=== PATIENT | female | born 1955 | race Caucasian/White ===

== ENCOUNTER → 2023-02-19 10:54 | Outpatient (BNVA) | payer MEDICARE, SELFPAY | PROVIDERS: PCP Family Medicine; Visit Provider Family Medicine | DX: E03.9 Hypothyroidism, unspecified (principal); E78.5 Hyperlipidemia, unspecified; I10 Essential (primary) hypertension | CPT/HCPCS: 80053; 80061; 84443 ==

== ENCOUNTER → 2023-05-28 08:39 | Outpatient (BNVA) | payer MEDICARE, SELFPAY | PROVIDERS: PCP Family Medicine; Visit Provider Family Medicine | DX: R39.9 Unspecified symptoms and signs involving the genitourinary system (principal); F41.9 Anxiety disorder, unspecified; N95.2 Postmenopausal atrophic vaginitis; N39.0 Urinary tract infection, site not specified; I10 Essential (primary) hypertension; N30.01 Acute cystitis with hematuria; F51.05 Insomnia due to other mental disorder; F99 Mental disorder, not otherwise specified | CPT/HCPCS: 81000; 87086 ==

== ENCOUNTER → 2023-08-28 15:18 | Outpatient (BNVA) | payer MEDICARE, SELFPAY | PROVIDERS: PCP Family Medicine; Visit Provider Family Medicine | DX: F41.9 Anxiety disorder, unspecified (principal); G47.00 Insomnia, unspecified; I10 Essential (primary) hypertension; E03.9 Hypothyroidism, unspecified; E78.5 Hyperlipidemia, unspecified; F51.01 Primary insomnia; E78.2 Mixed hyperlipidemia; I73.00 Raynaud's syndrome without gangrene; J30.2 Other seasonal allergic rhinitis | CPT/HCPCS: 80048; 80061; 84443; 85025 ==

== ENCOUNTER → 2023-09-25 09:27 | Outpatient (BNVA) | payer MEDICARE, SELFPAY | PROVIDERS: PCP Family Medicine; Referring Provider Family Medicine; Visit Provider Family Medicine | DX: E78.2 Mixed hyperlipidemia (principal); I10 Essential (primary) hypertension | CPT/HCPCS: 80048 ==

== ENCOUNTER → 2023-10-22 10:00 | Outpatient (BNVA) | payer MEDICARE, SELFPAY | PROVIDERS: PCP Family Medicine; Visit Provider Family Medicine | DX: M25.562 Pain in left knee (principal); R07.81 Pleurodynia; S82.092A Other fracture of left patella, initial encounter for closed fracture; W19.XXXA Unspecified fall, initial encounter; R91.1 Solitary pulmonary nodule | CPT/HCPCS: 71100; 73562 ==

== ENCOUNTER → 2023-11-05 09:55 | Outpatient (BNVA) | payer MEDICARE, SELFPAY | PROVIDERS: PCP Family Medicine; Visit Provider Family Medicine | DX: S82.002A Unspecified fracture of left patella, initial encounter for closed fracture (principal); W01.0XXA Fall on same level from slipping, tripping and stumbling without subsequent striking against object, initial encounter; S20.211A Contusion of right front wall of thorax, initial encounter | CPT/HCPCS: 73562 ==

== ENCOUNTER → 2023-11-28 16:27 | Outpatient (BNVA) | payer MEDICARE, SELFPAY | PROVIDERS: PCP Family Medicine; Visit Provider Nurse Practitioner Family | DX: S82.002A Unspecified fracture of left patella, initial encounter for closed fracture (principal); X58.XXXA Exposure to other specified factors, initial encounter | CPT/HCPCS: 73562 ==

== ENCOUNTER → 2023-12-15 11:03 | Outpatient (BNVA) | payer MEDICARE, SELFPAY | PROVIDERS: PCP Family Medicine; Visit Provider Nurse Practitioner | DX: R39.9 Unspecified symptoms and signs involving the genitourinary system (principal); N39.0 Urinary tract infection, site not specified; N30.01 Acute cystitis with hematuria | CPT/HCPCS: 81000 ==

== ENCOUNTER → 2024-03-26 09:31 | Outpatient (BNVA) | payer MEDICARE, SELFPAY | PROVIDERS: PCP Family Medicine; Visit Provider Family Medicine | DX: F41.9 Anxiety disorder, unspecified (principal); I10 Essential (primary) hypertension; E03.9 Hypothyroidism, unspecified; Z79.899 Other long term (current) drug therapy | CPT/HCPCS: 80048; 84439; 84443; 84481 ==

== ENCOUNTER → 2025-03-11 09:28 | Outpatient (BNVA) | payer MEDICARE, SELFPAY | PROVIDERS: PCP Family Medicine; Visit Provider Family Medicine | DX: I10 Essential (primary) hypertension (principal); K29.70 Gastritis, unspecified, without bleeding; E03.9 Hypothyroidism, unspecified; F41.9 Anxiety disorder, unspecified; F51.01 Primary insomnia; E78.2 Mixed hyperlipidemia; Z63.6 Dependent relative needing care at home; J30.2 Other seasonal allergic rhinitis; Z87.19 Personal history of other diseases of the digestive system | CPT/HCPCS: 80053; 80061; 84439; 84443; 84481 ==

== ENCOUNTER → 2025-09-08 10:21 | Outpatient (BNVA) | payer MEDICARE, SELFPAY | PROVIDERS: PCP Family Medicine; Visit Provider Nurse Practitioner | DX: F41.9 Anxiety disorder, unspecified (principal) | CPT/HCPCS: 80053; 84443; 85025 ==

== ENCOUNTER → 2025-09-21 08:51 | Outpatient (BNVA) | payer MEDICARE, SELFPAY | PROVIDERS: PCP Family Medicine; Referring Provider Nurse Practitioner; Visit Provider Nurse Practitioner | DX: E87.1 Hypo-osmolality and hyponatremia (principal); E03.9 Hypothyroidism, unspecified | CPT/HCPCS: 80053; 84443 ==

== ENCOUNTER → 2025-10-13 13:55 | Outpatient (BNVA) | payer MEDICARE, SELFPAY | PROVIDERS: PCP Family Medicine; Visit Provider Nurse Practitioner | DX: E03.9 Hypothyroidism, unspecified (principal); E87.1 Hypo-osmolality and hyponatremia | CPT/HCPCS: 80048; 84443 ==